=== PATIENT | male | born 1990 | race Caucasian/White ===

== ENCOUNTER 2018-10-08 05:45 | Emergency (ER) | payer MEDICAID ==
[~2018-10-08] VITALS: Ht 172.7 cm; Wt 81.6 kg
[2018-10-08 05:50] VITALS: BP_SYST 135
[2018-10-08] MEDS ORDERED: NACL 0.9% 1,000 ML IV ONE (05:58)
[2018-10-08] MEDS ORDERED: PANTOPRAZOLE SODIUM 40 MG/VIAL (PROTONIX) IVP ONE (06:00)
[2018-10-08] MEDS ORDERED: KETOROLAC TROMETHAMINE 30 MG VIAL IVP ONE (06:00)
[2018-10-08] MEDS ORDERED: GLUCAGON,HUMAN RECOMBINANT 1 MG VIAL IVP ONE (06:00)
[2018-10-08] MEDS ORDERED: MAG-AL HYDROX/SIMETH 30 ML UDC PO ONE (06:15)
[2018-10-08] MEDS ORDERED: DICYCLOMINE HCL 10 MG/5 ML SOLUTION PO ONE (06:15)
[2018-10-08] MEDS ORDERED: KETOROLAC TROMETHAMINE 60 MG/2 ML VIAL IM ONE (06:15)
[2018-10-08] MEDS ORDERED: LIDOCAINE VISCOUS 2%, 15 ML UDC MM ONE (06:15)
[2018-10-08 07:03] VITALS: BP_SYST 135
== END 2018-10-08 07:03 | disposition home or self-care (01) ==
LOC: SED 05:45
DX: K20.9 Esophagitis, unspecified (principal)
CPT/HCPCS: 93005; 96372; 99283; J1885; J2001